=== PATIENT | male | born 1990 | race African-American/Black ===

== ENCOUNTER 2024-07-28 03:27 | Emergency (ER) | payer MEDICAID ==
[~2024-07-28] VITALS: Ht 172.7 cm; Wt 69.9 kg
[2024-07-28] MEDS: SODIUM CHLORIDE 0.9% 1,000 ML IV ONE (03:45)
[2024-07-28] MEDS: MORPHINE SULFATE 4 MG/ML INJ (FOR IV/IM USE) IV STA (04:02)
[2024-07-28] MEDS: ONDANSETRON HCL 4MG/2ML INJ IV STA (04:07)
[2024-07-28 04:24] LABS: CHLORIDE 110 mEq/L (98-107); POTASSIUM 3.7 mEq/L (3.5-5.1); SODIUM 144 mEq/L (136-145)
[2024-07-28 04:25] LABS: CALCIUM 8.8 mg/dL (8.7-10.4); CARBON DIOXIDE 24 mEq/L (21-32)
[2024-07-28 04:30] LABS: CREATININE 1.3 mg/dL (0.6-1.3); GLUCOSE 94 mg/dL (70-105); UREA NITROGEN BLOOD 10 mg/dL (9-23)
[2024-07-28 07:34] VITALS: BP 120/93; PULSE 72; RESP 13; TEMP 36.8; O2SAT 100
== END 2024-07-28 08:04 | disposition home or self-care (01) ==
LOC: ER 03:27
DX: S01.111A Laceration without foreign body of right eyelid and periocular area, initial encounter (principal); V49.9XXA Car occupant (driver) (passenger) injured in unspecified traffic accident, initial encounter; Y93.89 Activity, other specified; Y92.410 Unspecified street and highway as the place of occurrence of the external cause; Y99.8 Other external cause status
CPT/HCPCS: 80048; 86850; 86900; 86901; 36415; 71045; 70450; 70486; 71260; 72125; 96361; 96374; 96375; 99291; J2405; J2270; J7030; Z7610 ×2; 74177